=== PATIENT | male | born 1940 | race Caucasian/White ===

== ENCOUNTER → 2020-12-03 | Day surgery (SDC) | payer MEDICARE, OTHER ==
[~2020-12-03] VITALS: Ht 180.3 cm; Wt 75.1 kg
[~2020-12-03] MED LIST: CRESTOR20 MG PO; DAILY VALUE1 EACH PO; MELOXICAM15 MG PO; SKIN CREAM; VITAMIN D325 MCG PO; ZINC PO
== END | disposition home or self-care (01) ==
LOC: FAS 05:58
DX: M16.12 Unilateral primary osteoarthritis, left hip (principal); E78.00 Pure hypercholesterolemia, unspecified; I71.4 Abdominal aortic aneurysm, without rupture; F17.200 Nicotine dependence, unspecified, uncomplicated; Z88.0 Allergy status to penicillin; Z79.899 Other long term (current) drug therapy
CPT/HCPCS: 76000; J1040; J2001; J2250; J2704; J7120; Q9967